=== PATIENT | male | born 1965 | race Hispanic/Latino ===

== ENCOUNTER 2024-09-08 07:08 | Day surgery (SDC) | payer OTHER ==
[2024-09-02 08:38] VITALS: BMI 30.5
[2024-09-08] MEDS ORDERED: Lidocaine 2% MPF 10 ML AMP (For Epidural Use) ONE (08:48)
[2024-09-08] MEDS ORDERED: PROPOFOL 60 ML ONE (08:48)
[2024-09-08] MEDS ORDERED: PROPOFOL 20 ML ONE ×2 (09:20→09:28)
== END 2024-09-08 10:35 | disposition home or self-care (01) ==
LOC: CSHSDC 07:08
PROVIDERS: ATTEND Surgery
PROC: 0DBN8ZZ Excision of Sigmoid Colon, Via Natural or Artificial Opening Endoscopic (ICD-10-PCS; principal; 2024-09-08)
PROC: 0DBN8ZX Excision of Sigmoid Colon, Via Natural or Artificial Opening Endoscopic, Diagnostic (ICD-10-PCS; principal; 2024-09-08)
DX: Z12.11 Encounter for screening for malignant neoplasm of colon (principal); K63.5 Polyp of colon; K57.30 Diverticulosis of large intestine without perforation or abscess without bleeding; K63.89 Other specified diseases of intestine; I10 Essential (primary) hypertension; E78.5 Hyperlipidemia, unspecified; M19.90 Unspecified osteoarthritis, unspecified site; Z83.72 Family history of familial adenomatous polyposis; Z79.899 Other long term (current) drug therapy
CPT/HCPCS: 88305; J2704